=== PATIENT | female | born 1960 | race Caucasian/White ===

== ENCOUNTER → 2017-01-28 | Outpatient (CLI) | payer OTHER | LOC: GMAJ 17:09 | PROVIDERS: ATTEND Family Medicine | DX: E04.0 Nontoxic diffuse goiter (principal) ==

== ENCOUNTER → 2017-02-03 | Outpatient (CLI) | payer OTHER ==
--- NOTE | 2017-02-03 15:06 | MAM ---
EXAM DESCRIPTION: Diagnostic Mammo,Left CLINICAL HISTORY: 56 years,Female,ABD MAMMOGRAM COMPARISON: September 30, 2016 TECHNIQUE: Diagnostic digital mammogram performed of the left breast spot compression and CAD. FINDINGS: There is moderate nodular breast tissue density. The asymmetric densities do not persist with spot compression. And there was a possible architectural distortion in the lateral left breasts cc view only 10 cm from the nipple which also did not persist with spot compression. IMPRESSION: Unremarkable diagnostic mammogram recommend routine mammogram in one year. BI-RADS Category 1: Negative According to the [employer], yearly mammograms are recommended starting at age 40 and continuing as long as a woman is in good health. Any breast change noted on a breast self-exam should be reported promptly to the patient's healthcare provider. Breast MRI is recommended for women with an approximately 20-25% or greater lifetime risk of breast cancer, including women with a strong family history of breast or ovarian cancer and women who have been treated for Hodgkin's disease. A negative Mammography report should not discourage follow up or biopsy of a clinically significant finding and/or abnormality. Dense breast tissue may obscure neoplasms. Electronically signed by: Alex Roblero MD 02/03/2017 3:04 PM CDT
== END | disposition home or self-care (01) ==
LOC: MAMMO 13:38
PROVIDERS: ATTEND Family Medicine
DX: R92.8 Other abnormal and inconclusive findings on diagnostic imaging of breast (principal)
CPT/HCPCS: 77065; G0206

== ENCOUNTER 2017-06-10 09:26 | Emergency (ER) | payer OTHER ==
[2017-06-10 09:44] VITALS: BP 159/102; TEMP 98.2; O2SAT 97
--- NOTE | 2017-06-10 10:05 | ED.PDOC ---
History of Present Illness - General Chief Complaint: Neck Injury/Pain Stated Complaint: L neck/shoulder discomfort Time Seen by Provider: 06/10/17 09:50 Source: patient Exam Limitations: no limitations - History of Present Illness Initial Comments: Patient presents with left arm pain for several months. The pain is a shooting sensation down the entire shoulder and arm coming from the neck. Worse with movement, better with rest. There is some weakness secondary to the pain. No other complaints. Timing/Duration: changing over time Severity: mild Improving Factors: rest Worsening Factors: movement Associated Symptoms: denies symptoms Allergies/Adverse Reactions: Allergies NO KNOWN ALLERGY Allergy (Verified 06/10/17 09:45) Home Medications: Ambulatory Orders Thyroid Medication 1 each PO DAILY 06/10/17 Review of Systems - Review of Systems Constitutional: States: no symptoms reported EENTM: States: no symptoms reported Respiratory: States: no symptoms reported Cardiology: States: no symptoms reported Gastrointestinal/Abdominal: States: no symptoms reported Genitourinary: States: no symptoms reported Musculoskeletal: States: see HPI Skin: States: no symptoms reported Neurological: States: see HPI Endocrine: States: no symptoms reported Hematologic/Lymphatic: States: no symptoms reported Past Medical History (General) - Patient Medical History Hx Seizures: No Hx Stroke: No Hx Dementia: No Hx Asthma: No Hx of COPD: No Hx Cardiac Disorders: No Hx Congestive Heart Failure: No Hx Pacemaker: No Hx Hypertension: No Hx Thyroid Disease: Yes Hx Diabetes: No Hx Gastroesophageal Reflux: No Hx Renal Disease: No Hx Cancer: No Hx of HIV: No Hx Hepatitis C: No Hx MRSA: No Surgical History: no surgical history - Vaccination History Hx Tetanus, Diphtheria Vaccination: No Hx Influenza Vaccination: No Hx Pneumococcal Vaccination: No - Social History Hx Tobacco Use: No Hx Chewing Tobacco Use: No Hx Alcohol Use: No Hx Substance Use: No Hx Substance Use Treatment: No Hx Depression: No Hx Physical Abuse: No Hx Emotional Abuse: No Hx Suspected Abuse: No - Female History Patient is a Female of Child Bearing Age (10 -59 yrs old): No Patient : No Family Medical History - Family History Mother Living Status: Cause of : [place] possible Father Living Status: Cause of : Cancer Physical Exam - Physical Exam General Appearance: Alert Respiratory: lungs clear Cardiovascular/Chest: normal peripheral pulses, regular rate, rhythm Gastrointestinal/Abdominal: normal bowel sounds, non tender, soft Extremity: other - Pain on the entire left arm with elevation against resistance , internal rotation against resistance, retraction against resistance, and external rotation against resistance. Pain is similar in all ranges of motion. It starts in the hand and shoots up the medial arm to the shoulder and neck. Neck rotation also elicits some of the pain. 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 Copy, Patient Portal Self Enrollment Diet: resume usual diet Activity: as per physical therapy Referrals: Antwan Ely MD [Primary Care Provider] - 1-2 Weeks Home Medications: Ambulatory Orders Thyroid Medication 1 each PO DAILY 06/10/17 Additional Instructions: See your regular doctor for possible referral to neurology or physical therapy.
== END 2017-06-10 10:25 | disposition home or self-care (01) ==
LOC: ER 09:26
DX: R20.9 Unspecified disturbances of skin sensation (principal); E07.9 Disorder of thyroid, unspecified

== ENCOUNTER 2018-02-17 10:57 | Emergency (ER) | payer OTHER ==
[2018-02-17 11:17] VITALS: TEMP 97.9
--- NOTE | 2018-02-17 11:26 | ED.PDOC ---
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 DENIES ANY CHEST PAINS BUT FELT PALPITATIONS AND HER SKIN BECAME CLAMMY. SHE FELT WEAK AND HER ASSISTED HER AND SHE FELT THE DESIRE TO DEFECATE. SHE WAS TAKEN TO THE BATHROOM AND THERE SHE PASSED OUT FOR A FEW SECONDS. THE PATIENT WAS BROUGHT TO THE ED. SHE VOICES THAT A YEAR AGO SHE HAD A SIMILAR EPISODE AND IT TURNED OUT TO BE HYPOKALEMIA. - History of Present Illness Allergies/Adverse Reactions: Allergies Codeine Allergy (Verified 02/17/18 11:18) Home Medications: Ambulatory Orders Thyroid Medication 1 each PO DAILY 06/10/17 Potassium Chloride [K-Tab] 10 meq PO ONCE 30 Days tab 02/17/18 Review of Systems - Review of Systems Constitutional: States: diaphoresis, weakness EENTM: States: no symptoms reported Respiratory: States: no symptoms reported Cardiology: States: palpitations Gastrointestinal/Abdominal: States: nausea Genitourinary: States: no symptoms reported Musculoskeletal: States: no symptoms reported Skin: States: no symptoms reported Neurological: States: headache Endocrine: States: no symptoms reported Hematologic/Lymphatic: States: no symptoms reported All other Systems: Reviewed and Negative, No Change from Baseline Past Medical History (General) - Patient Medical History Hx Seizures: No Hx Stroke: No Hx Dementia: No Hx Asthma: No Hx of COPD: No Hx Cardiac Disorders: No Hx Congestive Heart Failure: No Hx Pacemaker: No Hx Hypertension: No Hx Thyroid Disease: Yes Hx Diabetes: No Hx Gastroesophageal Reflux: No Hx Renal Disease: No Hx Cancer: No Hx of HIV: No Hx Hepatitis C: No Hx MRSA: No Surgical History: other - Vaccination History Hx Tetanus, Diphtheria Vaccination: No Hx Influenza Vaccination: No Hx Pneumococcal Vaccination: No - Social History Hx Tobacco Use: No Hx Chewing Tobacco Use: No Hx Alcohol Use: No Hx Substance Use: No Hx Substance Use Treatment: No Hx Depression: No Hx Physical Abuse: No Hx Emotional Abuse: No Hx Suspected Abuse: No - Female History Patient : No Family Medical History - Family History Mother Living Status: Cause of : [place] possible Father Living Status: Cause of : Cancer Physical Exam - Physical Exam General Appearance: Alert, Anxious, No apparent distress Eye Exam: bilateral normal Ears, Nose, Throat: hearing grossly normal Neck: non-tender, full range of motion, supple, normal inspection Respiratory: chest non-tender, lungs clear, normal breath sounds, no respiratory distress Cardiovascular/Chest: normal peripheral pulses, regular rate, rhythm, no edema, no gallop, no JVD, no murmur Peripheral Pulses: radial,right: 2+, radial,left: 2+ Gastrointestinal/Abdominal: normal bowel sounds, non tender, soft, no organomegaly, no pulsatile mass Rectal Exam: deferred Back Exam: normal inspection Extremity: normal range of motion, non-tender, no pedal edema, no calf tenderness Neurologic: no motor/sensory deficits, alert, normal mood/affect, oriented x 3 Skin Exam: normal color, warm/dry Lymphatic: no adenopathy Progress - Progress Progress: 02/17/18 14:22 THE LAB IS REPORTED: POTASSIUM OF 2.9,, H/H OF 14/41, TROP I WAS 0.02, UA WAS CLEAN AND THE CXR W/O ACUTE PROCESS. EKG: HR OF 81, OR INTERVAL OF 146, QTC OF 460. QRS OF 82, AXES OF 9 DEGREES. IMPRESSION: SINUS RHYTHM, LVH. PROLONGED QT INTERVAL. COURSE IN THE ED: POTASSIUM HAS BEEN INFUSED, SHE HAD A POSITIVE TILT SO ONE LITER OF NS WAS INFUSED. PLAN: DC HOME, RECOMMEND CARDIOLOGY CONSULTATION GIVEN THAT THIS SYNCOPE SEEMS TO BE RECURRENT. Departure - Departure Clinical Impression: Syncope and collapse, Hypokalemia Time of Disposition: 14:27 Disposition: Discharge to Home or Self Care Condition: Good Departure Forms: ED Discharge - Pt. Copy, Patient Portal Self Enrollment Diet: resume usual diet Activity: increase activity as tolerated Referrals: Antwan Ely MD [Primary Care Provider] - 1-2 Weeks Prescriptions: Potassium Chloride [K-Tab] 10 meq PO ONCE 30 Days tab Home Medications: Ambulatory Orders Thyroid Medication 1 each PO DAILY 06/10/17 Potassium Chloride [K-Tab] 10 meq PO ONCE 30 Days tab 02/17/18
--- NOTE | 2018-02-17 12:00 | RAD ---
EXAM DESCRIPTION: Chest,1 View CLINICAL HISTORY: SYNCOPE COMPARISON: October 03, 2015 FINDINGS: The cardiomediastinal silhouette is unremarkable. There is no airspace consolidation or pleural effusion. The bronchovascular markings are within normal limits, and the lungs are not hyperinflated. There is no pneumothorax or acute fracture. IMPRESSION: Negative exam. Electronically signed by: Milo Elizalde MD 02/17/2018 11:59 AM CDT
[2018-02-17] MEDS ORDERED: KCL 20MEQ/WATER FOR INJ 100ML 20 MEQ in PREMIX BAG 1 BAG IVPB ONE (12:33)
[2018-02-17] MEDS ORDERED: POTASSIUM CHLORIDE 20 MEQ TAB PO ONE (12:33)
[2018-02-17] MEDS ORDERED: SODIUM CHLORIDE 0.9% 1000ML 1,000 ML IVS ONE (12:35)
[2018-02-17] MEDS ORDERED: KCL 20MEQ/WATER FOR INJ 100ML 100 ML IVPB ONE (12:38)
[2018-02-17 17:18] VITALS: O2SAT 97
[2018-02-17 17:19] VITALS: BP 131/79
== END 2018-02-17 17:27 | disposition home or self-care (01) ==
LOC: ER 10:57
DX: R55 Syncope and collapse (principal); E87.6 Hypokalemia; E07.9 Disorder of thyroid, unspecified
CPT/HCPCS: 36415; 71045; 80053; 81001; 84484; 85025; 93005; J3480; J7030

== ENCOUNTER → 2018-05-05 | Outpatient (CLI) | payer OTHER | LOC: GMAJ 10:51 | PROVIDERS: ATTEND Family Medicine | DX: Z00.00 Encounter for general adult medical examination without abnormal findings (principal) ==

== ENCOUNTER 2018-06-23 19:01 | Emergency (ER) | payer OTHER ==
[2018-06-23 19:26] VITALS: TEMP 97.4
--- NOTE | 2018-06-23 19:32 | ED.PDOC ---
History of Present Illness - General Chief Complaint: General Stated Complaint: dizzy, nausea, sweaty Time Seen by Provider: 06/23/18 19:30 Source: patient, RN notes reviewed Exam Limitations: no limitations - History of Present Illness Initial Comments: SHE HAS BEEN HERE BEFORE FOR SIMILAR SYMPTOMS. TODAY SHE HAD AN EPISODE OF FACIAL FLUSHING, SWEATING, HEADACHE AND LIGHTHEADEDNESS. THIS ALL LASTED FOR APPROX. TWO HOURS AND THEN IT IS BETTER. IN THE PAST THE ONLY THINGS THAT HAVE BEEN NOTED IS HYPOKALEMIA. Timing/Duration: 1-3 hours Severity: moderate Improving Factors: nothing Worsening Factors: nothing Allergies/Adverse Reactions: Allergies Codeine Adverse Reaction (Verified 06/23/18 19:18) Nausea Home Medications: Ambulatory Orders Levothyroxine Sodium [Synthroid] 25 mcg PO DAILY 06/23/18 Review of Systems - Review of Systems Constitutional: States: diaphoresis EENTM: States: no symptoms reported Respiratory: States: short of breath Cardiology: States: other - NEAR SYNCOPE Gastrointestinal/Abdominal: States: no symptoms reported Genitourinary: States: no symptoms reported Musculoskeletal: States: no symptoms reported Skin: States: other - FACIAL FLUSHING Neurological: States: headache, weakness Endocrine: States: no symptoms reported Hematologic/Lymphatic: States: no symptoms reported All other Systems: Reviewed and Negative Past Medical History (General) - Patient Medical History Hx Seizures: No Hx Stroke: No Hx Dementia: No Hx Asthma: No Hx of COPD: No Hx Cardiac Disorders: No Hx Congestive Heart Failure: No Hx Pacemaker: No Hx Hypertension: No Hx Thyroid Disease: Yes Hx Diabetes: No Hx Gastroesophageal Reflux: No Hx Renal Disease: No Hx Cancer: No Hx of HIV: No Hx Hepatitis C: No Hx MRSA: No Surgical History: tonsillectomy - Vaccination History Hx Tetanus, Diphtheria Vaccination: No Hx Influenza Vaccination: No Hx Pneumococcal Vaccination: No - Social History Hx Tobacco Use: No Hx Chewing Tobacco Use: No Hx Alcohol Use: No Hx Substance Use: No Hx Substance Use Treatment: No Hx Depression: No Hx Physical Abuse: No Hx Emotional Abuse: No Hx Suspected Abuse: No - Female History Patient : No - Triage Comment ED Triage Comment: Had a sudden onset of dizziness, weakness, SNELL, Nausea and lethargic. Pt reports its happened before and was told her potassium was low. Pt also reports moderate throbbing SNELL will no stop with OTC meds. PT feels sweaty and anxious. Reports she has been under moderate stress lately. Family Medical History - Family History Mother Living Status: Cause of : [place] possible Father Living Status: Cause of : Cancer Physical Exam - Physical Exam General Appearance: Alert, Anxious, Well Developed, Well Groomed, Well Hydrated , Well Nourished Eye Exam: bilateral normal Ears, Nose, Throat: hearing grossly normal, normal ENT inspection Respiratory: chest non-tender, lungs clear, normal breath sounds, no respiratory distress, no accessory muscle use Cardiovascular/Chest: normal peripheral pulses, regular rate, rhythm, no edema, no gallop, no JVD, no murmur Peripheral Pulses: radial,right: 2+, radial,left: 2+ Gastrointestinal/Abdominal: normal bowel sounds, non tender, soft, no organomegaly, no pulsatile mass Rectal Exam: deferred Back Exam: normal inspection Extremity: normal range of motion Neurologic: no motor/sensory deficits Skin Exam: normal color Lymphatic: no adenopathy Progress - Results/Orders Results/Orders: LABORATORY IS NORMAL. EKG: HR OF 64, MO INTERVAL OF 158, QRS OF 74, QTC OF 425, AXES OF 14 DEGREES.: IMPRESSION: NORAL SINUS RHYTHM. NORMAL EGG Departure - Departure Clinical Impression: Near syncope Time of Disposition: 20:27 Disposition: Discharge to Home or Self Care Condition: Fair Departure Forms: ED Discharge - Pt. Copy, Patient Portal Self Enrollment Referrals: Antwan Ely MD [Primary Care Provider] - 1-2 Weeks Home Medications: Ambulatory Orders Levothyroxine Sodium [Synthroid] 25 mcg PO DAILY 06/23/18 Comments: DIFFERENTIAL DX: CARCINOID SYNDROME
[2018-06-23 20:18] VITALS: BP 117/76; O2SAT 97
== END 2018-06-23 20:34 | disposition home or self-care (01) ==
LOC: ER 19:01
DX: R55 Syncope and collapse (principal); R51 Headache; E07.9 Disorder of thyroid, unspecified; Z79.899 Other long term (current) drug therapy; Z88.5 Allergy status to narcotic agent

== ENCOUNTER → 2018-06-24 | Outpatient (CLI) | payer OTHER | LOC: GMATM 18:26 | PROVIDERS: ATTEND Nurse Practitioner Family | DX: N39.0 Urinary tract infection, site not specified (principal) ==

== ENCOUNTER → 2018-11-24 | Outpatient (CLI) | payer OTHER ==
--- NOTE | 2018-11-24 13:27 | RAD ---
4 view left shoulder Indication: PAIN IN LEFT SHOULDER Comparison: None. Impression: A.C. and glenohumeral joint alignment normal without acute fracture or dislocation. Mild AC joint osteoarthritis. Mild lateral downsloping acromion. Minimal glenohumeral joint osteoarthritis. Electronically signed by: Joe Mcnulty MD 11/24/2018 1:25 PM [facility]
--- NOTE | 2018-11-25 14:10 | MAM ---
EXAM DESCRIPTION: 3D Screening BILATERAL : Digital Mammography. CLINICAL HISTORY: 57 years Female ANNUAL SCREENING . No complaints. No personal or family history of breast cancer. Childbirth no. Postmenopausal for years. No HRT. Lifetime risk of developing breast cancer (Tyrer-Cuzick model)(%): 8.3. COMPARISON: 2-D digital screening bilateral mammography 09/30/2016. Diagnostic digital left 2-D mammography 02/03/2017. TECHNIQUE: Bilateral CC and MLO projection full-field images, digital tomosynthesis mammographic technique. Bilateral digital 2-D full-field MLO images. CAD not available for tomosynthesis or 2-D images. FINDINGS: The breast parenchymal density pattern is: Heterogeneously dense breast tissue, which may obscure small masses. No skin thickening or nipple retraction. Bilateral axillary lymph nodes. Bilateral solitary microcalcifications. Bilateral regions of focal asymmetry are stable since the prior study.. No new focal, stellate mass or density, focal asymmetry , and no suspicious microcalcifications bilaterally. Stable mammograms compared to prior study. Taking into account, differences in mammographic technique. IMPRESSION: Benign exam. BIRAD CATEGORY: 2 BENIGN FINDINGS. RECOMMENDATIONS: FOLLOW UP: Routine digital bilateral mammographic screening, one year interval from November 2018. Written communication explaining the IMPRESSION and follow-up, will be mailed to the patient and referring health care provider. According to the [employer], yearly mammograms are recommended starting at age 40 and continuing as long as a woman is in good health. Any breast change noted on a breast self-exam should be reported promptly to the patient's healthcare provider. Breast MRI is recommended for women with an approximately 20-25% or greater lifetime risk of breast cancer, including women with a strong family history of breast or ovarian cancer and women who have been treated for Hodgkin's disease. A negative mammographic report should not delay tissue diagnosis in patients with significant clinical history or physical findings. Extremely dense breast tissue limits the sensitivity of digital mammography. Electronically signed by: Boaz Mann MD 11/25/2018 2:08 PM [facility]
== END ==
LOC: RAD 09:12
PROVIDERS: ATTEND Orthopaedic Surgery
DX: Z12.31 Encounter for screening mammogram for malignant neoplasm of breast (principal); M19.012 Primary osteoarthritis, left shoulder; M25.512 Pain in left shoulder

== ENCOUNTER → 2018-12-01 | Outpatient (CLI) | payer OTHER | LOC: GMAJ 17:12 | PROVIDERS: ATTEND Family Medicine | DX: E03.9 Hypothyroidism, unspecified (principal) ==

== ENCOUNTER 2018-12-09 05:37 | Day surgery (SDC) | payer OTHER ==
[2018-12-09] MEDS ORDERED: LIDOCAINE 1% 10 ML VIAL INJ ONE (07:00)
[2018-12-09] MEDS ORDERED: GLYCOPYRROLATE 0.2 MG/ML VIAL ONE (07:00)
[2018-12-09] MEDS ORDERED: PROPOFOL 200 MG/20 ML VIAL IV ONE (07:00)
[2018-12-09] MEDS ORDERED: LACTATED RINGERS 1,000 ML ONE (07:23)
--- NOTE | 2018-12-09 13:33 | OP ---
DATE OF PROCEDURE: 12/09/18 PREPROCEDURE DIAGNOSIS: 1. Colorectal cancer screening. POSTPROCEDURE DIAGNOSIS: 1. Two colonic polyps status post resection. PROCEDURE: 1. Colonoscopy. SURGEON: Omar Montague MD COMPLICATIONS: No immediate complications. SEDATION: The patient was sedated via IV propofol by the Anesthesia Department. CONSENT: Prior to the procedure, risks, benefits and alternatives to the therapy were discussed with the patient. The risks included bleeding, infection, perforation and . The patient agreed to the procedure and signed a consent. PREPROCEDURE ANESTHESIA ASSESSMENT: An examination revealed no contraindication to sedation. Airway examination demonstrated a Mallampati class type 2, ASA grade assessment type 2. Throughout the procedure, the patient's vital signs were closely monitored. PROCEDURE: The patient was placed in the left lateral decubitus position and a rectal examination was performed. The rectal examination was within normal limits. The Olympus colonoscope was passed in the anus, rectum, traversing the colon to the level of the cecum as identified by the appendiceal orifice. The scope was retracted and the mucosa was visualized. The entirety of the exam was performed under direct visualization. Retroflexion was performed in the rectum. Preparation quality was good. The withdrawal time was greater than 6 minutes. The patient tolerated the procedure well. FINDINGS: 1. Two sessile polyps measuring 5 to 8 mm were found in the cecum and in the rectum. The polyp in the cecum was resected with cold forceps biopsy and the polyp in the rectum was retrieved with a cold snare. 2. Non-bleeding medium sized internal hemorrhoids. 3. Otherwise, unremarkable examination of the colon. RECOMMENDATION: 1. Return the patient home. 2. Resume previous diet. 3. Repeat colonoscopy in 5 years if evidence of adenomatous tissue. 4. Return to referring physicians office as previously scheduled. 5. Return to my office p.r.n. 6. Findings were discussed with the patient and family members. #[id number] MTDD
[2018-12-09 15:27] VITALS: BP 138/92; TEMP 97.8; O2SAT 100
== END 2018-12-09 12:50 | disposition home or self-care (01) ==
LOC: AMB 05:37
PROVIDERS: ATTEND Internal Medicine Gastroenterology
DX: Z12.11 Encounter for screening for malignant neoplasm of colon (principal); D12.0 Benign neoplasm of cecum; K62.1 Rectal polyp; E03.9 Hypothyroidism, unspecified; G43.909 Migraine, unspecified, not intractable, without status migrainosus; Z79.899 Other long term (current) drug therapy
CPT/HCPCS: 00812; 45380; 45385; 88305; J3490; J7120

== ENCOUNTER → 2019-02-22 | Outpatient (CLI) | payer OTHER ==
--- NOTE | 2019-02-22 17:01 | RAD ---
EXAM DESCRIPTION: Cervical Spine,3 Views CLINICAL HISTORY: 58 years Female, CERVICAL DISC HERNIATION COMPARISON: None. FINDINGS: Three views of the cervical spine show previous ACDF at C5-6 and C6-7 without apparent hardware or other surgical complication. No vertebral body fracture or subluxation. The facet joints are anatomically aligned. The spinous processes are intact. There is facet joint degeneration at several levels in the mid cervical spine. The disc spaces are fairly well maintained at the nonsurgical levels. IMPRESSION: Postoperative and mild to moderate multilevel degenerative changes. No acute cervical spine abnormality. Electronically signed by: Milo Elizalde MD 02/22/2019 4:59 PM CDT
== END ==
LOC: RAD 10:12
PROVIDERS: ATTEND Neurological Surgery
DX: M50.20 Other cervical disc displacement, unspecified cervical region (principal); M50.30 Other cervical disc degeneration, unspecified cervical region; Z98.890 Other specified postprocedural states

== ENCOUNTER → 2019-04-11 | Outpatient (CLI) | payer OTHER ==
--- NOTE | 2019-04-11 14:44 | RAD ---
EXAM DESCRIPTION: Cervical Spine, 2-3 Views CLINICAL HISTORY: 58 years Female, CERVICAL DISC HERNIATION COMPARISON: February 22, 2019 FINDINGS: Again seen are postoperative changes related to previous ACDF at C5-6 and C6-7. No hardware or other surgical complication. No prevertebral soft tissue swelling or gas. No vertebral body fracture or subluxation. Mild disc space narrowing at C7-T1. Facet joint degeneration at a few levels in the mid and lower cervical spine. IMPRESSION: Uncomplicated postoperative changes and mild multilevel degenerative changes including disc space narrowing at C7-T1. No new cervical spine abnormality. Electronically signed by: Milo Elizalde MD 04/11/2019 2:42 PM CDT
== END ==
LOC: RAD 12:52
PROVIDERS: ATTEND Neurological Surgery
DX: M50.20 Other cervical disc displacement, unspecified cervical region (principal); M47.892 Other spondylosis, cervical region; Z98.890 Other specified postprocedural states

== ENCOUNTER → 2019-06-08 | Outpatient (CLI) | payer OTHER ==
--- NOTE | 2019-06-08 17:06 | RAD ---
EXAM DESCRIPTION: Clavicle,Left CLINICAL HISTORY: 58 years Female, M25.512. Pain. COMPARISON: 11/24/2018. FINDINGS/IMPRESSION: Two views of the left clavicle demonstrate metallic side plate and interlocking screw fixation of the left distal clavicle without hardware fracture or displacement. The visualized left acromioclavicular and glenohumeral joint alignment is intact without dislocation. Electronically signed by: Toni Alcantara DO 06/08/2019 5:04 PM CDT
== END ==
LOC: RAD 13:28
PROVIDERS: ATTEND Orthopaedic Surgery
DX: M25.512 Pain in left shoulder (principal); Z98.890 Other specified postprocedural states

== ENCOUNTER → 2019-07-07 | Outpatient (CLI) | payer OTHER ==
--- NOTE | 2019-07-08 14:17 | RAD ---
EXAM DESCRIPTION: Clavicle,Left CLINICAL HISTORY: LEFT CLAVICLE FRACTURE COMPARISON: June 08, 2019 IMPRESSION: 2 views of the left clavicle show plate and screw fixation of the mid to distal clavicle. No hardware failure or loosening. Fixation of the distal clavicle to the coracoid process is unchanged from previous. Mild osteoarthritic changes of the left acromioclavicular joint. Electronically signed by: Mitchell Beltran MD 07/08/2019 2:15 PM CDT
== END ==
LOC: RAD 09:09
PROVIDERS: ATTEND Orthopaedic Surgery
DX: S42.002D Fracture of unspecified part of left clavicle, subsequent encounter for fracture with routine healing (principal); M19.012 Primary osteoarthritis, left shoulder; Z98.890 Other specified postprocedural states

== ENCOUNTER → 2019-08-18 | Outpatient (CLI) | payer OTHER ==
--- NOTE | 2019-08-18 11:44 | RAD ---
EXAM DESCRIPTION: Clavicle,Left CLINICAL HISTORY: 58 years Female, FRACTURE OF UNSPEC PART OF LEFT CLAVICLE COMPARISON: July 07, 2019. FINDINGS: Again noted are postsurgical changes consistent with prior fixation of the distal clavicular fracture with compression plate and screws. The hardware appears intact. No definite fracture line identified. Fixation of the distal clavicle to the coracoid process appears unchanged. Mild osteoarthritic changes of the left AC joint are noted. The overlying soft tissues appear grossly unremarkable. IMPRESSION: 1. Left distal clavicular fracture fixation with compression plate and screws. The hardware appears intact. 2. Mild left AC joint osteoarthritis. Electronically signed by: Moe Springer MD 08/18/2019 11:43 AM CDT
== END ==
LOC: RAD 10:51
PROVIDERS: ATTEND Orthopaedic Surgery
DX: S42.032D Displaced fracture of lateral end of left clavicle, subsequent encounter for fracture with routine healing (principal); M19.012 Primary osteoarthritis, left shoulder; Z98.890 Other specified postprocedural states

== ENCOUNTER 2020-10-31 19:22 | Emergency (ER) | payer OTHER ==
[2020-10-31 19:54] VITALS: O2SAT 98
--- NOTE | 2020-10-31 20:11 | RAD ---
EXAM: Shoulder,Right 2 or More Views CLINICAL INDICATION: Right shoulder pain COMPARISON: There is no previous study for comparison. FINDINGS: 2 views of the right shoulder reveal mild degenerative changes of the AC joint. There is no fracture, dislocation, or focal bone lesion. IMPRESSION: Mild degenerative changes of the right AC joint. No acute fracture or dislocation. Electronically signed by: Radames Grande MD 10/31/2020 8:09 PM [facility]
--- NOTE | 2020-10-31 20:26 | ED.PDOC ---
History of Present Illness - General Chief Complaint: Upper Extremity Injury Stated Complaint: right shoulder pain Time Seen by Provider: 10/31/20 19:57 Source: patient, family Exam Limitations: no limitations - History of Present Illness Occurred: just prior to arrival Pain - Upper Extremity: moderate: Shoulder, right Method of Injury: fell Improving Factors: nothing Worsening Factors: nothing Allergies/Adverse Reactions: Allergies Codeine Adverse Reaction (Verified 06/23/18 19:18) Nausea Home Medications: Ambulatory Orders Levothyroxine Sodium [Synthroid] 25 mcg PO DAILY 06/23/18 Review of Systems - Review of Systems Constitutional: Denies: chills, fever EENTM: Denies: eye pain, blurred vision, tearing Respiratory: Denies: cough, short of breath, stridor Cardiology: Denies: chest pain, palpitations, syncope Gastrointestinal/Abdominal: Denies: abdominal pain, diarrhea, nausea Genitourinary: Denies: frequency, hematuria Neurological: Denies: anxiety, depressed, emotional problems Endocrine: Denies: flushing, intolerance to cold, intolerance to heat Hematologic/Lymphatic: Denies: anemia, easy bleeding, easy bruising Past Medical History (General) - Patient Medical History Hx Seizures: No Hx Stroke: No Hx Dementia: No Hx Asthma: No Hx of COPD: No Hx Cardiac Disorders: No Hx Congestive Heart Failure: No Hx Pacemaker: No Hx Hypertension: No Hx Thyroid Disease: Yes Hx Diabetes: No Hx Gastroesophageal Reflux: No Hx Renal Disease: No Hx Cancer: No Hx of HIV: No Hx Hepatitis C: No Hx MRSA: No - Vaccination History Hx Tetanus, Diphtheria Vaccination: Yes Hx Influenza Vaccination: No Hx Pneumococcal Vaccination: No Immunizations Up to Date: Yes - Social History Hx Tobacco Use: No Hx Chewing Tobacco Use: No Hx Alcohol Use: No Hx Substance Use: No Hx Substance Use Treatment: No Hx Depression: No Hx Physical Abuse: No Hx Emotional Abuse: No Hx Suspected Abuse: No - Female History Patient is a Female of Child Bearing Age (10 -59 yrs old): No Patient : No Family Medical History - Family History Mother Living Status: Cause of : [place] possible Father Family History: No Known Living Status: Cause of : Cancer Physical Exam - Physical Exam General Appearance: Alert, Comfortable Eyes, Ears, Nose, Throat Exam: normal ENT inspection, TMs normal, pharynx normal Neck: non-tender, full range of motion, supple, normal inspection Cardiovascular/Respiratory: regular rate, rhythm, normal peripheral pulses, no JVD, normal breath sounds, no respiratory distress Abdominal Exam: non-tender, no organomegaly Back Exam: normal inspection, no vertebral tenderness Shoulder Exam: limited ROM, pain, soft tissue tenderness Elbow/Forearm Exam: normal inspection, non-tender, no evidence of injury Wrist Exam: normal inspection, non-tender, no evidence of injury Hand Exam: normal inspection, non-tender, no evidence of injury Neuro/Tendon: normal sensation, normal motor functions, normal tendon functions, no evidence tendon injury Mental Status: alert, oriented x 3 Skin Exam: normal color, warm/dry Progress - EKG/XRAY/CT XRAY: shoukder - no fracture Xray Comments: EXAM: Shoulder,Right 2 or More Views CLINICAL INDICATION: Right shoulder p Departure - Departure Clinical Impression: Sprain of shoulder and upper arm Disposition: Discharge to Home or Self Care Departure Forms: ED Discharge - Pt. Copy, Patient Portal Self Enrollment Instructions: DI for Arm Pain Referrals: Antwan Ely MD [Primary Care Provider] - 1-2 Weeks Home Medications: Ambulatory Orders Levothyroxine Sodium [Synthroid] 25 mcg PO DAILY 06/23/18 Additional Instructions: Please follow-up with your primary care physician in 1 to 2 days Please leave shoulder immobilizer as indicated in the ED today. Use ibuprofen as prescribed as needed for pain. Do not take ibuprofen on empty stomach and drink enough water Return to the emergency department as needed Return to the emergency department as needed
[2020-10-31 20:53] VITALS: BP 142/84; TEMP 97.2
== END 2020-10-31 20:54 | disposition home or self-care (01) ==
LOC: ER 19:22
DX: S43.401A Unspecified sprain of right shoulder joint, initial encounter (principal); E07.9 Disorder of thyroid, unspecified; Z88.5 Allergy status to narcotic agent; W19.XXXA Unspecified fall, initial encounter; Y92.9 Unspecified place or not applicable